=== PATIENT | female | born 1960 | race Two or more races ===

== ENCOUNTER 2019-10-27 08:25 | Outpatient (CLI) | payer OTHER | END 2019-10-27 08:39 | disposition home or self-care (01) | LOC: NUCLEAR 08:25 | PROVIDERS: ATTEND Internal Medicine Sports Medicine | DX: E05.80 Other thyrotoxicosis without thyrotoxic crisis or storm (principal) | CPT/HCPCS: 78012; A9531 ==

== ENCOUNTER 2019-10-28 08:14 | Outpatient (CLI) | payer OTHER | END 2019-10-28 08:31 | disposition home or self-care (01) | LOC: NUCLEAR 08:14 | PROVIDERS: ATTEND Internal Medicine Sports Medicine | DX: E05.80 Other thyrotoxicosis without thyrotoxic crisis or storm (principal) | CPT/HCPCS: 78013; A9512 ==

== ENCOUNTER 2019-11-22 13:17 | Outpatient (CLI) | payer OTHER | END 2019-11-22 13:21 | disposition home or self-care (01) | LOC: NUCLEAR 13:17 | PROVIDERS: ATTEND Internal Medicine Sports Medicine | DX: E05.80 Other thyrotoxicosis without thyrotoxic crisis or storm (principal); E04.8 Other specified nontoxic goiter | CPT/HCPCS: 79005; A9517 ==